=== PATIENT | male | born 1990 | race African-American/Black ===

== ENCOUNTER 2019-07-10 20:58 | Emergency (ER) | payer MEDICAID, SELFPAY ==
[2019-07-10] MEDS ORDERED: Fluorescein Opthalmic Strip ONE (21:37)
[2019-07-10] MEDS ORDERED: Proparacaine 0.5% Opth 15 ML BOT ONE (21:38)
[2019-07-10] MEDS ORDERED: Adacel (T-DAP) 0.5 ML SYRINGE ONE (22:24)
== END 2019-07-10 22:46 | disposition home or self-care (01) ==
LOC: ERS 20:58
DX: T15.01XA Foreign body in cornea, right eye, initial encounter (principal); F17.220 Nicotine dependence, chewing tobacco, uncomplicated; W22.8XXA Striking against or struck by other objects, initial encounter
CPT/HCPCS: 65220; 90471; 90715

== ENCOUNTER 2022-02-05 16:03 | Emergency (ER) | payer OTHER, SELFPAY | END 2022-02-05 16:48 | disposition home or self-care (01) | LOC: ERS 16:03 | DX: S42.022A Displaced fracture of shaft of left clavicle, initial encounter for closed fracture (principal); F17.220 Nicotine dependence, chewing tobacco, uncomplicated; V86.99XA Unspecified occupant of other special all-terrain or other off-road motor vehicle injured in nontraffic accident, initial encounter; Y92.410 Unspecified street and highway as the place of occurrence of the external cause ==